=== PATIENT | male | born 1975 | race Caucasian/White ===

== ENCOUNTER 2017-01-15 21:25 | Emergency (ER) | payer OTHER ==
[2017-01-15] MEDS ORDERED: CYCLOBENZAPRINE5 M1 PO (23:40)
== END 2017-01-16 00:34 ==
LOC: EDMED 21:25
DX: S67.01XA Crushing injury of right thumb, initial encounter (principal); W23.0XXA Caught, crushed, jammed, or pinched between moving objects, initial encounter; Y92.69 Other specified industrial and construction area as the place of occurrence of the external cause; Y99.0 Civilian activity done for income or pay; Z90.49 Acquired absence of other specified parts of digestive tract